=== PATIENT | male | born 1935 ===

== ENCOUNTER 2018-03-05 20:12 | Emergency (ER) | payer MEDICARE, MEDICAID ==
[2018-03-05 21:05] VITALS: BMI 24.4
[2018-03-05 22:29] LABS: HEMOGLOBIN 11.3 g/dL (12.0-18.0); MEAN CELL VOLUME 104.6 fl (80.0-94.0); MEAN CORPUSCULAR HEMOGLOBIN 35.4 pg (27.0-31.0); MEAN CORPUSCULAR HGB CONC 33.8 g/dL (33.0-37.0); RBC 3.2 Mil/uL (4.40-5.90); RED CELL DISTRIBUTION WIDTH 13.3 % (11.5-14.5); WHITE BLOOD COUNT 7.4 K/uL (4.8-10.8)
--- NOTE | 2018-03-05 22:32 | ED PDOC ---
Lower Extremity Pain/Injury Time Seen by Provider: 03/05/18 21:25 Chief Complaint (Nursing): Abnormal Skin Integrity Chief Complaint (Provider): Lower Extremity Pain/Injury History Per: Patient History/Exam Limitations: no limitations Onset/Duration Of Symptoms: Days (x1) Current Symptoms Are (Timing): Still Present Additional Complaint(s): 82 y/o male with a PMHx of anxiety, asthma, COPD, depression, HTN, and hypercholesterolemia presents to the ED complaining of right lower extremity redness and swelling, onset yesterday. Patient states swelling has been coming and going for "a long time". Patient reports swelling is more pronounced today and redness is radiating up the leg. Denies fever, chest pain, and shortness of breath. PMD: David Russell Past Medical History Reviewed: Historical Data, Nursing Documentation, Vital Signs Vital Signs: Last Vital Signs Temp 98.4 F 03/05/18 21:05 Pulse 69 03/05/18 21:05 Resp 19 03/05/18 21:05 BP 109/67 03/05/18 21:05 Pulse Ox 98 03/05/18 21:05 - Medical History PMH: Anxiety, Asthma, COPD, Depression, HTN, Hypercholesterolemia Denies: Diabetes, Hepatitis, HIV, Seizures, Sexually Transmitted Disease - Surgical History Surgical History: No Surg Hx - Family History Family History: States: Unknown Family Hx - Home Medications Home Medications: Ambulatory Orders Medication Instructions Recorded ALPRAZolam [Xanax] 0.25 mg PO BID 08/12/15 Albuterol Sulfate [Proair Hfa] 2 puff INH PRN PRN 08/12/15 Citalopram [celEXA] 20 mg PO DAILY 08/12/15 Clopidogrel [Plavix] 75 mg PO DAILY 08/12/15 Rosuvastatin Calcium [Crestor] 5 mg PO DAILY 08/12/15 Telmisartan/Hydrochlorothiazid 1 tab PO DAILY 08/12/15 [Micardis Hct 25 mg-80 mg] amLODIPine [Norvasc] 5 mg PO DAILY 08/12/15 risperiDONE [RisperDAL Tab] 0.25 mg PO HS 08/12/15 Clindamycin [Cleocin] 300 mg PO TID 10 Days cap 03/05/18 - Allergies Allergies/Adverse Reactions: Allergies Allergy/AdvReac Type Severity Reaction Status Date / Time aspirin Allergy RASH Verified 08/19/15 13:36 Review of Systems ROS Statement: Except As Marked, All Systems Reviewed And Found Negative Constitutional: Negative for: Fever Cardiovascular: Negative for: Chest Pain Respiratory: Negative for: Shortness of Breath Musculoskeletal: Positive for: Leg Pain (Right leg swelling and redness) Physical Exam - Reviewed Nursing Documentation Reviewed: Yes Vital Signs Reviewed: Yes - Physical Exam Appears: Positive for: No Acute Distress Head Exam: Positive for: ATRAUMATIC, NORMOCEPHALIC Skin: Positive for: Normal Color, Warm, Dry Eye Exam: Positive for: Normal appearance, EOMI, PERRL Neck: Positive for: Normal, Painless ROM, Supple Cardiovascular/Chest: Positive for: Regular Rate, Rhythm. Negative for: Murmur Respiratory: Positive for: Normal Breath Sounds. Negative for: Respiratory Distress Gastrointestinal/Abdominal: Positive for: Normal Exam, Soft. Negative for: Tenderness Back: Positive for: Normal Inspection. Negative for: L CVA Tenderness, R CVA Tenderness, Vertebral Tenderness Extremity: Positive for: Swelling (Right lower extremity swollen with erythema from the ankle to the knee. Warm to touch.) Neurologic/Psych: Positive for: Alert, Oriented. Negative for: Motor/Sensory Deficits - Laboratory Results Result Diagrams: 03/05/18 22:00 03/05/18 22:00 - ECG O2 Sat by Pulse Oximetry: 98 (RA) Pulse Ox Interpretation: Normal Medical Decision Making Medical Decision Making: Time: 2140 A/P: 82 y/o male with a PMHx of anxiety, asthma, COPD, depression, HTN, and hypercholesterolemia presenting with swollen right leg with erythema -- Concerned for possible DVT vs. cellulitis vs fluid overload. Plan: -- Dopler Lower Extremity US -- CXR Two Views Time: 2199 Plan: -- B-Type Natriuretic -- BMP -- Troponin I -- CBC with differentials 1130PM EXAM: US Duplex Right Lower Extremity Veins CLINICAL HISTORY: 82 years old, male; Pain; Leg, lower; Right; Additional info: R/O dvt TECHNIQUE: Real-time duplex ultrasound scan of the right lower extremity veins integrating B-mode twodimensional vascular structure, Doppler spectral analysis, color flow Doppler imaging and compression. COMPARISON: No relevant prior studies available. FINDINGS: Deep veins: Unremarkable. No DVT in the visualized common femoral, femoral, proximal deep femoral or popliteal veins. The veins demonstrate normal color flow, are normally compressible, with normal phasic flow and/or augmentation response. Soft tissues: No acute findings. No popliteal cyst. IMPRESSION: Normal right lower extremity duplex venous ultrasound. Thank you for allowing us to participate in the care of your patient. Dictated and Authenticated by: Bernadette Rivera MD 03/05/2018 11:39 PM Eastern Time ([place] & [place]) Patient likely suffering with cellulitis based on U/S, exam. No white count on labs, will treat with clindamycin and recommend followup with Dr. Russell ___ Scribe Attestation: Documented by Subhash Roberts acting as a scribe for Dr. Haseeb Myrick MD. Provider Scribe Attestation: All medical record entries made by the Scribe were at my direction and personally dictated by me. I have reviewed the chart and agree that the record accurately reflects my personal performance of the history, physical exam, medical decision making, and the department course for this patient. I have also personally directed, reviewed, and agree with the discharge instructions and disposition. Disposition - Clinical Impression Clinical Impression: Cellulitis - Disposition Referrals: David Russell MD [Family Provider] - Disposition: Routine/Home Disposition Time: 23:44 Condition: CRITICAL Prescriptions: Clindamycin [Cleocin] 300 mg PO TID 10 Days cap Instructions: Cellulitis and Erysipelas (Skin Infections) Forms: [employer] (Slovak) Print Language: MALAY
[2018-03-05 22:39] LABS: BLOOD UREA NITROGEN 28 mg/dl (9-20); GFR AFRICAN-AMERICAN 58; GFR NON-AFRICAN AMERICAN 48
[2018-03-05 22:40] LABS: B-TYPE NATRIURETIC PEPTIDE 203 pg/ml (0-900); CALCIUM 8.7 mg/dL (8.4-10.2)
[2018-03-05] MEDS ORDERED: Clindamycin ORAL SUSP 75 MG/5 ML PO STA (23:43)
[2018-03-06 00:10] VITALS: BP 149/78; PULSE 76; RESP 18; TEMP 98.8; O2SAT 96
--- NOTE | 2018-03-06 09:20 | RAD ---
HISTORY: COMPARISON: 08/12/2015. TECHNIQUE: Chest PA and lateral FINDINGS: LINES AND TUBES: None. LUNG AND PLEURA: The lungs are hyperinflated and there is peribronchial thickening with chronic changes in both lungs. No focal consolidation. No pleural effusion or pneumothorax. There is biapical pleural thickening. HEART AND MEDIASTINUM: The heart is not enlarged. The hilar and mediastinal contours are within normal limits. SKELETAL STRUCTURES: The bony structures are within normal limits for the patient's age. VISUALIZED UPPER ABDOMEN: Normal. OTHER FINDINGS: None. IMPRESSION: No active pulmonary disease. COPD.
--- NOTE | 2018-03-06 11:50 | US ---
Date of service: 03/05/2018 PROCEDURE: Right lower extremity venous duplex Doppler. HISTORY: r/o DVT COMPARISON: None available. TECHNIQUE: Common femoral, superficial femoral, popliteal and posterior tibial veins were evaluated. Flow was assessed with color Doppler, compressibility, assessment of phasic flow and augmentation response. FINDINGS: COMMON FEMORAL VEIN: Unremarkable. SUPERFICIAL FEMORAL VEIN: Unremarkable. POPLITEAL VEIN: Unremarkable. POSTERIOR TIBIAL VEIN: Unremarkable. OTHER FINDINGS: None. IMPRESSION: No evidence of deep venous thrombosis in the right lower extremity. Concordant findings (preliminary report) provided by [facility].
== END 2018-03-06 00:09 | disposition home or self-care (01) ==
LOC: H.ER 20:12
DX: L03.115 Cellulitis of right lower limb (principal); I10 Essential (primary) hypertension; E78.00 Pure hypercholesterolemia, unspecified